=== PATIENT | male | born 1955 | race Hispanic/Latino ===

== ENCOUNTER → 2024-02-28 | Outpatient (CLI) | payer MEDICARE | END | disposition home or self-care (01) | LOC: RAH 10:48 | PROVIDERS: ATTEND Family Medicine | DX: Z13.6 Encounter for screening for cardiovascular disorders (principal); I70.0 Atherosclerosis of aorta | CPT/HCPCS: 76775 ==

== ENCOUNTER → 2024-12-06 | Outpatient (CLI) | payer MEDICARE ==
[2024-12-06 16:38] LABS: ALBUMIN 3.5 g/dL (3.5-5.0); BILIRUBIN,TOTAL 0.4 mg/dL (0.2-1.0); POTASSIUM 4.5 mmol/L (3.5-5.1); TOTAL PROTEIN, SERUM 6.7 g/dL (6.0-8.3)
== END | disposition home or self-care (01) ==
LOC: LAB 14:48
PROVIDERS: ATTEND Student in an Organized Health Care Education/Training Program
DX: I10 Essential (primary) hypertension (principal); R07.9 Chest pain, unspecified
CPT/HCPCS: 36415; 80053

== ENCOUNTER → 2024-12-11 | Outpatient (CLI) | payer MEDICARE ==
[~2024-12-11] MED LIST: IOHEXOL 350 MG/ML 100ML INFUS..BTL IV ONE
--- NOTE | 2024-12-11 10:59 | HMCIMG ---
CT CARDIAC ANGIO W/CONT. CCTA HISTORY: Chest pain COMPARISON: None TECHNIQUE: Multiple sequential axial images of the chest were obtained along with the CT angiogram of the chest study. Patient was given 100 cc of Omnipaque through intravenous route. FINDINGS: There is no evidence of pulmonary nodule or parenchymal disease. No pleural effusion or pericardial effusion is seen. There is no evidence of pneumothorax. There are normal size mediastinal and hilar lymph nodes. The heart is not enlarged. Degenerative changes of the thoracolumbar spine are present. IMPRESSION: 1. No evidence of pulmonary nodule or effusion is seen. Please see CT angiogram report of coronary arteries.
== END | disposition home or self-care (01) ==
LOC: RAH 07:48
PROVIDERS: ATTEND Student in an Organized Health Care Education/Training Program
DX: R07.9 Chest pain, unspecified (principal); M47.815 Spondylosis without myelopathy or radiculopathy, thoracolumbar region
CPT/HCPCS: 75574; Q9967

== ENCOUNTER 2025-11-05 11:53 | Emergency (ER) | payer MEDICARE ==
[~2025-11-05] VITALS: Ht 165.1 cm; Wt 90.7 kg
[~2025-11-05 11:53] MED LIST changes: +ATOR20TA65 PO; +CEPH500B PO; +DOXY100C5 PO; -IOHEXOL 350 MG/ML 100ML INFUS..BTL IV ONE; +LOSA25TA41 PO
--- NOTE | 2025-11-05 14:14 | HMCIMG ---
EXAM: US for Deep Venous Thrombosis, left Upper Extremity. CLINICAL HISTORY: left upper extremity TECHNIQUE: Real-time ultrasound scan of the veins of the left upper extremity with color Doppler flow, spectral waveform analysis and compression. COMPARISON: None provided. FINDINGS: VEINS: Echogenic thrombus within the cephalic vein in arm and forearm with absent compressibility and lack of normal venous flow, consistent with cephalic vein thrombosis. The internal jugular and subclavian veins demonstrate flow. The axillary, basilic, and brachial veins are echolucent, compressible, and demonstrate normal color Doppler flow. SOFT TISSUES: No acute finding. IMPRESSION: Echogenic thrombus within the cephalic vein with absent compressibility and lack of normal venous flow, consistent with left cephalic vein thrombosis. /[place]
--- NOTE | 2025-11-05 14:31 | ERN ---
General Chief Complaint: Arm Swelling/Redness Stated Complaint: PAIN TO ARM Time Seen by MD: 11:59 Time Seen by Midlevel: 11:59 Source: patient History of Present Illness Initial Comments Patient is a 70-year-old male presenting to the emergency department for evaluation of pain to his left antecubital fossa. The patient states he was in our hospital several days ago and had significant amount of pain after your they inserted an IV. Over the last several days the pain has increased in intensity so he reports to the ER for further evaluation. Denies any fever, chills, or any other symptoms at this time. He saw his primary care doctor and was sent here to rule out a deep vein thrombosis. Allergies: Coded Allergies: No Known Allergies (Unverified Allergy, Unknown, 10/11/25) Home Meds Active Scripts Doxycycline Hyclate (Doxycycline Hyclate) 100 Mg Capsule, 1 CAP PO BID for 7 Days, #14 CAP 0 Refills Prov:PRINCE [place] 10/18/25 Cephalexin Monohydrate (Keflex) 500 Mg Cap, 1 CAP PO TID for 10 Days, #30 CAP 0 Refills Prov:[facility] 10/18/25 Reported Medications Losartan Potassium (Losartan Potassium) 25 Mg Tablet, 25 MG PO DAILY, TAB 10/13/25 Atorvastatin Calcium (Atorvastatin Calcium) 20 Mg Tablet, 1 TAB PO DAILY for 30 Days, #30 TAB 0 Refills 10/12/25 Past Medical History Past Medical History: High Cholesterol, Hypertension Medical History Other: DENIES PMH Past Surgical History: Other Surgical History Other: BRAIN SX ROS Dictation CONSTITUTIONAL: Negative except for HPI HEAD/FACE: Negative except for HPI EENT: Negative except for HPI RESPIRATORY: Negative except for HPI GASTROINTESTINAL/ABDOMINAL: Negative except for HPI GENITOURINARY: Negative except for HPI MUSCULOSKELETAL: Negative except for HPI INTEGUMENTARY: Negative except for HPI NEUROLOGICAL/PSYCH: Negative except for HPI HEMATOLOGIC/LYMPHATIC: Negative except for HPI All Systems Negative, Except as noted above. 13 point review of systems assessed and all negative except for above. Physical Exam Physical Exam Dictation Vital Signs reviewed General Appearance: Alert, oriented x 3, no acute distress, well developed, nourished. Head and Face: non-traumatic. Eyes: PERRL, pink conjunctivas, eyelid no trauma, anterior chamber with arcus senilis. Ears: Pinnas intact and no signs of trauma or erythema ear canals clear and no discharge TM no erythema Nose: No discharge, no bleeding. Oropharynx: Mouth normal, tongue pink, pharynx clear,no erythema, tonsils no exudates, no abscesses noted, mucous membrane moist Neck: Supple, non-tender, no thyromegaly, no masses, no JVD, no bruits Breast:Deferred Chest:No tenderness, no crepitus, no paradoxical movement, no retractions Lungs:Clear, well-ventilated, symmetric, no rales, no wheezing, no rhonchi, no stridor, good breath sounds bilaterally Heart: Regular rate, regular rhythm, no murmur, no gallops Vascular: no peripheral edema, Abdomen: Soft, positive bowel sounds, nondistended, no guarding, nontender, no rebound, no masses no hepatomegaly, no splenomegaly, no Garcia's sign, no hernias. Rectal: Deferred Genital: Deferred Neurological: Normal speech, motor function intact, sensory function intact Musculoskeletal: Neck nontender, full range of motion, back nontender, full range of motion, Extremities: nontender, full range of motion Skin: Color pink, dry, no turgor, no rash, no lacerations, no abrasions, no cont usions. Lymphatic: Deferred MDM MDM: Differential diagnosis: DVT, superficial thrombophlebitis, cellulitis There are no social concerns with this patient. Prescription drug management Prescriptions will include: None Medical management and examination interpretation discussions were had by me with other qualified healthcare professionals as indicated for the patient's care. ED Course Orders Procedure Category Date Status Time Us Venous Doppler US 11/05/25 Resulted Unilateral 12:55 Vital Signs Date Time Temp Pulse Resp B/P (MAP) Pulse Ox O2 Delivery O2 Flow Rate FiO2 11/05/25 14:39 97.9 76 20 138/84 96 Room Air* 0 21 11/05/25 12:23 97.9 74 20 155/94 96 Room Air* 0 21 11/05/25 11:54 97.9 74 20 155/94 96 Room Air [address] [address] IMAGING REPORT Signed PATIENT: MARY BOONE MR#: [id number] : 1955 SEX: M AGE: 70 LOCATION: [facility] ORDER [id number] STATUS: PRE ER REPORT#: [id number] SERVICE [id number] REASON: left upper extre ORDERING PHYSICIAN: NAHID REED PROCEDURE: VENOUS UNI - US VENOUS DOPPLER UNILATERAL EXAM: US for Deep Venous Thrombosis, left Upper Extremity. CLINICAL HISTORY: left upper extremity TECHNIQUE: Real-time ultrasound scan of the veins of the left upper extremity with color Doppler flow, spectral waveform analysis and compression. COMPARISON: None provided. FINDINGS: VEINS: Echogenic thrombus within the cephalic vein in arm and forearm with absent compressibility and lack of normal venous flow, consistent with cephalic vein thrombosis. The internal jugular and subclavian veins demonstrate flow. The axillary, basilic, and brachial veins are echolucent, compressible, and demonstrate normal color Doppler flow. SOFT TISSUES: No acute finding. IMPRESSION: Echogenic thrombus within the cephalic vein with absent compressibility and lack of normal venous flow, consistent with left cephalic vein thrombosis. /[place] DICTATED BY: DOUGIE ROMO Jr., MD DATE: 11/05/251512 ELECTRONICALLY SIGNED BY: DOUGIE ROMO Jr., MD DATE: 11/05/251512 v DX & DISP Disposition: Discharge Departure Impression: Primary Impression: Superficial thrombophlebitis Condition: Stable Referrals: NAHID NARANJO MD (PCP) I have reviewed the case, and I agree with, Diagnosis and Plan I performed the substantive portion of the visit. I have reviewed and personally made and approve the management plan that is documented in the note by myself or the YANELI. I acknowledge for responsibility for the patient's management plan. NAHID REED PAC Nov 05, 2025 14:30
[2025-11-05 14:39] VITALS: BP 138/84; PULSE 76; RESP 20; TEMP 97.9; O2SAT 96
== END 2025-11-05 14:40 | disposition home or self-care (01) ==
LOC: EDH 11:53
DX: I80.8 Phlebitis and thrombophlebitis of other sites (principal); I10 Essential (primary) hypertension; E78.00 Pure hypercholesterolemia, unspecified; Z79.899 Other long term (current) drug therapy
CPT/HCPCS: 93971; 99284